=== PATIENT | female | born 1985 | race Caucasian/White ===

== ENCOUNTER 2021-08-24 10:16 | Inpatient (IN) | payer OTHER, MEDICAID, SELFPAY ==
[2021-08-24] VITALS (22 sets, daily range): BP systolic 109–138; BP diastolic 62–85; PULSE 85–115; RESP 14–30; TEMP 36.6–37.3; O2SAT 94–100; BMI 30.3
--- NOTE | 2021-08-24 10:41 | ED_ITS ---
HPI - Psych General Chief Complaint: Psychiatric Symptoms Time Seen by Provider: 08/24/21 10:39 Source: patient Mode of arrival: Ambulatory (w/ EMS volunteer aide from [facility]) Limitations: no limitations History of Present Illness HPI Narrative: This is a 36-year-old female who comes emergency department with complaint of alcohol withdrawal, suicidal ideation with intentional overdose last night of approximately 15 tablets of 300 mg gabapentin. Patient does not really admit to intentional suicidal overdose but also states multiple times that she ?just wants to ?. When asked specifically why she took gabapentin she states she is not sure why. She states she is feeling extremely anxious. She gets quite upset, tearful and yells but then apologizes. She states she just does not like the feeling of the alcohol withdrawal. She does states she has a history of bipolar she can not really tell me if she feels like she is manic right now or more depressed. She does have medications that she takes she is unclear about whether she has been taking them regularly. She moved to the area in May from [place] and is not fully established with mental health care from what she tells me. She denies other medical issues. She has had seizures with alcohol withdrawal in the past she denies hallucinations at this time but feels shaky, nauseated she has had some diarrhea. No chest pain or shortness of breath. She denies vomiting. She denies any urinary symptoms. Patient denies any major prior surgeries. No known drug allergies. She does use tobacco, she states she drinks a 5th to 1/2 gallon of daily, she uses THC but denies other illicit. I was also contacted prior to her arrival by Brianna PIÑA. He states patient has had suicidal thoughts of overdosing and then mentions later that patient took approximately 15 tabs of gabapentin at 300 mg approximately at 10:00 p.m. on 08/23/2021 per patient report and her last alcoholic drink was 12 hours prior at 8:00 p.m. on 08/23/2021. Patient drinks a half to a 5th of whiskey daily. He notes that patient's father while in the hospital going through alcohol withdrawal from an [place]. Patient states this was 2 years ago. He is sending the patient for alcohol abuse as well as concurrent psychiatric needs. Related Data Home Medications Medication Instructions Recorded Confirmed atomoxetine 40 mg capsule 40 mg PO DAILY 08/24/21 08/24/21 cariprazine 3 mg capsule (Vraylar) 3 mg PO DAILY 08/24/21 08/24/21 gabapentin 300 mg capsule 300 mg PO DAILY 08/24/21 08/24/21 lamotrigine 100 mg tablet 100 mg PO BEDTIME 08/24/21 08/24/21 Allergies Allergy/AdvReac Type Severity Reaction Status Date / Time No Known Drug Allergies Allergy Verified 08/24/21 10:47 Review of Systems Review of Systems ROS Unobtainable: All systems reviewed & are unremarkable except as noted in HPI and below Patient History Social History Smoking Status: Current every day smoker Exam Narrative Exam Narrative: GEN: well nourished female, alert and oriented x 3, patient appears to be in moderate distress. HEENT: Atraumatic, pupils are equal round reactive to light, extraocular movements are intact, no nystagmus, nares are clear. HEART: Regular rate and rhythm without murmur, clicks, rubs. LUNGS:Lungs clear to auscultation, no wheezes, rales, crackles, chest moves symmetrically ABD:bowel sounds normal, soft, non-tender, no guarding, rebound, rigidity, no masses noted, no hepatosplenomegaly :No CVA tenderness MSCL: Non-tender, no muscle atrophy, muscles strength 5/5 upper and lower extremities, full range of motion, normal gait NEURO:CN 2-12 intact, sensation normal, mild generalized tremor. PSYCH: This is a patient who admits to suicidal ideation, she is seeking help, she denies thoughts of harming others or intent, patient feels that she is withdrawing but also has a history of bipolar. She currently denies any hallucinations. She admits to significant anxiety currently. Patient is intermittently tearful and agitated but then is apologetic. Initial Vital Signs Initial Vital Signs: Vital Signs Temperature 98 F 08/24/21 10:20 Pulse Rate 85 08/24/21 10:20 Respiratory Rate 18 08/24/21 10:20 Blood Pressure 138/85 08/24/21 10:20 Pulse Oximetry 100 08/24/21 10:20 Scores GCS Shira coma scale eye opening: Spontaneous [place] coma scale verbal response: Orientated [place] coma scale motor response: Obey commands [place] coma scale total score: 15 Course Orders Ordered: ED Orders 08/24/21 10:40 Urine Culture Stat Urine Drug Screen, Rapid Stat Urine Microscopic Stat 08/24/21 10:41 Consult to [facility] - International Student Counselor Stat 08/24/21 11:05 Acetaminophen Stat Complete Blood Count AUTO DIFF Stat Comprehensive Metabolic Panel Stat Ethanol (ETOH) Stat Hepatic (Liver) Panel Stat Lactate (Lactic Acid) Stat Salicylate Stat 08/24/21 12:37 COVID19 -Nasal swab/Pre-Proc Stat 08/24/21 15:36 ETOH [Ethanol (ETOH)] Stat Sodium Chloride (Normal Saline 0.9%) 1,000 mls @ 150 mls/hr IV CONT KYLE Last Admin: 08/24/21 11:01 Dose: 150 mls/hr Documented by: BRII Discontinued Medications Lorazepam (Lorazepam 2 Mg/Ml Inj) 1 mg IV NOW ONE Stop: 08/24/21 12:35 Last Admin: 08/24/21 12:43 Dose: 1 mg Documented by: BRII Nicotine (Nicotine 21 Mg Patch) 21 mg TOP NOW ONE Stop: 08/24/21 11:09 Last Admin: 08/24/21 11:41 Dose: 21 mg Documented by: KIRA Olanzapine (Olanzapine Odt 10 Mg Tab) 10 mg PO NOW ONE Stop: 08/24/21 10:55 Last Admin: 08/24/21 11:00 Dose: 10 mg Documented by: BRII Phenobarbital (Phenobarbital 65 Mg/Ml Vial) 260 mg IV NOW ONE Stop: 08/24/21 10:44 Last Admin: 08/24/21 10:59 Dose: 260 mg Documented by: BRII Phenobarbital (Phenobarbital 65 Mg/Ml Vial) 130 mg IV NOW ONE Stop: 08/24/21 15:28 Last Admin: 08/24/21 15:32 Dose: 130 mg Documented by: BRII Reevaluation(s) Reevaluation #1: Recheck patient had some improvement with initial dose of phenobarbital. Then began to feel more anxious. Her see what began to climb was given additional dose of Ativan. Reevaluation #2: On recheck patient's heart rate has began to climb, she is not hypertensive but is anxious. Her lactate has trended upwards. Concerned that she may be going through worsening alcohol withdrawal that is not responding well to medications and patient is agreeable to being inpatient medical treatment for alcohol withdrawal. Consultations Consultation #1: Poison control contacted. Would have seen effects by now. Typically very large overdoses are well tolerated. Main symptoms is drowsiness. Lactic acidosis is not expected. They have signed off from case at this time. Consultation #2: Dr. Laureano, hospitalist kindly accepts for admission for alcohol withdrawal, reported gabapentin overdose with rising lactic acidosis and tachycardia. Suspect this is secondary to her withdrawal she drinks a significant amount of alcohol. She has had improvement intermittently with the phenobarbital and 2nd dose as well as a single dose of Ativan. I did discuss that she had 1 dose of Zyprexa oral which was helpful. I had reviewed with pharmacy who states they Percocet will typically be down regulated and will be less by availability if have his repeated doses of phenobarbital. Vital Signs Vital signs: Vital Signs - 8 hr 08/24/21 10:20 08/24/21 11:08 08/24/21 11:30 Temperature 98 F Pulse Rate 85 93 H 90 Respiratory Rate 18 19 20 Blood Pressure 138/85 138/85 Pulse Oximetry 100 94 08/24/21 11:51 08/24/21 12:00 08/24/21 12:30 Temperature Pulse Rate 97 H 101 H 107 H Respiratory Rate 28 H 27 H 23 Blood Pressure 124/77 124/80 Pulse Oximetry 100 99 100 08/24/21 13:00 08/24/21 13:22 08/24/21 13:30 Temperature Pulse Rate 108 H 103 H 109 H Respiratory Rate 18 16 16 Blood Pressure 135/78 123/76 Pulse Oximetry 96 95 95 08/24/21 14:01 08/24/21 14:08 08/24/21 14:30 Temperature Pulse Rate 115 H 110 H 105 H Respiratory Rate 18 18 27 H Blood Pressure 133/85 124/75 Pulse Oximetry 96 99 98 08/24/21 15:00 08/24/21 15:41 Temperature 98.5 F Pulse Rate 106 H 105 H Respiratory Rate 28 H 16 Blood Pressure 135/75 122/74 Pulse Oximetry 97 99 MDM - Psych Lab Data Result diagrams: 08/24/21 11:05 08/24/21 11:05 Labs: Lab Results 08/24/21 08/24/21 08/24/21 Range/Units 10:40 10:40 11:05 WBC 6.6 (4.5-11.0) X10^3/uL RBC 5.06 (4.0-5.2) X10^6/uL Hgb 14.9 (12.0-16.0) g/dL Hct 43.0 (36-46) % MCV 84.9 (80-100) fL MCH 29.4 (26-34) PG MCHC 34.7 (30-36) % RDW 14.1 (11.6-14.8) % Plt Count 332 (150-400) X10^3/uL Neut % (Auto) 44.1 L (50-75) % Lymph % (Auto) 42.7 H (25-40) % Greene % (Auto) 11.4 (3-14) % Eos % (Auto) 0.5 L (2-4) % Baso % (Auto) 1.3 (0-2) % Neut # (Auto) 2900 (6710-5986) /uL Lymph # (Auto) 2800 (1394-6689) /uL Greene # (Auto) 800 (0-900) /uL Eos # (Auto) 0 (0-450) /uL Baso # (Auto) 100 (0-100) /uL Sodium (137-145) mmol/L Potassium (3.4-5.1) mmol/L Chloride (98-107) mmol/L Carbon Dioxide (22-32) mmol/L BUN (7-17) mg/dL Creatinine (0.52-1.04) mg/dL Estimated GFR (>60) mL/min BUN/Creatinine Ratio (6-22) Glucose (70-100) mg/dL Lactate (0.7-2.1) mmol/L Calcium (8.4-10.2) mg/dL Total Bilirubin (0.2-1.3) mg/dL Conjugated Bilirubin (0.0-0.3) md/dL Unconjugated Bilirubin (0.0-1.1) mg/dL AST (14-36) IU/L ALT (<35) IU/L Alkaline Phosphatase (38-126) U/L Total Protein (6.3-8.2) g/dL Albumin (3.5-5.0) g/dL Globulin (1.7-4.1) g/dL Albumin/Globulin Ratio (1.0-2.8) Urine RBC 1-5/hpf (0-5/HPF) Urine WBC 1-5/hpf (0-5/HPF) Ur Squamous Epith Cells 1-5 /hpf (0-5/HPF) Amorphous Sediment 1+ Urine Bacteria Moderate (10-30) H (None) Ur Culture Indicated? Specimen cultured Salicylates (<20) mg/dL U Opiates 300ng/mL cut Negative (Negative) Ur Oxycodone Screen Negative (Negative) Urine Methadone Screen Negative (Negative) Acetaminophen (10-30) ug/mL Ur Barbiturates Screen Negative (Negative) U Tricyclic Antidepress Negative (Negative) Ur Phencyclidine Scrn Negative (Negative) Ur Amphetamines Screen Negative (Negative) U Methamphetamines Scrn Negative (Negative) Ur MDMA Scrn (Ecstasy) Negative (Negative) U Benzodiazepines Scrn Negative (Negative) Urine Cocaine Screen Negative (Negative) U Marijuana (THC) Screen Negative (Negative) Ethyl Alcohol ( - 10) mg/dL SARS-CoV-2 (PCR) (Negative) 08/24/21 08/24/21 08/24/21 Range/Units 11:05 11:05 12:37 WBC (4.5-11.0) X10^3/uL RBC (4.0-5.2) X10^6/uL Hgb (12.0-16.0) g/dL Hct (36-46) % MCV (80-100) fL MCH (26-34) PG MCHC (30-36) % RDW (11.6-14.8) % Plt Count (150-400) X10^3/uL Neut % (Auto) (50-75) % Lymph % (Auto) (25-40) % Greene % (Auto) (3-14) % Eos % (Auto) (2-4) % Baso % (Auto) (0-2) % Neut # (Auto) (5827-5564) /uL Lymph # (Auto) (6170-2509) /uL Greene # (Auto) (0-900) /uL Eos # (Auto) (0-450) /uL Baso # (Auto) (0-100) /uL Sodium 140 (137-145) mmol/L Potassium 3.7 (3.4-5.1) mmol/L Chloride 101 (98-107) mmol/L Carbon Dioxide 30 (22-32) mmol/L BUN 8 (7-17) mg/dL Creatinine 0.58 (0.52-1.04) mg/dL Estimated GFR > 60.0 (>60) mL/min BUN/Creatinine Ratio 13.8 (6-22) Glucose 99 (70-100) mg/dL Lactate 2.3 H (0.7-2.1) mmol/L Calcium 8.8 (8.4-10.2) mg/dL Total Bilirubin 0.5 (0.2-1.3) mg/dL Conjugated Bilirubin 0.0 (0.0-0.3) md/dL Unconjugated Bilirubin 0.5 (0.0-1.1) mg/dL AST 45 H (14-36) IU/L ALT 49 H (<35) IU/L Alkaline Phosphatase 93 (38-126) U/L Total Protein 8.1 (6.3-8.2) g/dL Albumin 4.7 (3.5-5.0) g/dL Globulin 3.4 (1.7-4.1) g/dL Albumin/Globulin Ratio 1.4 (1.0-2.8) Urine RBC (0-5/HPF) Urine WBC (0-5/HPF) Ur Squamous Epith Cells (0-5/HPF) Amorphous Sediment Urine Bacteria (None) Ur Culture Indicated? Salicylates < 1.0 (<20) mg/dL U Opiates 300ng/mL cut (Negative) Ur Oxycodone Screen (Negative) Urine Methadone Screen (Negative) Acetaminophen < 10 L (10-30) ug/mL Ur Barbiturates Screen (Negative) U Tricyclic Antidepress (Negative) Ur Phencyclidine Scrn (Negative) Ur Amphetamines Screen (Negative) U Methamphetamines Scrn (Negative) Ur MDMA Scrn (Ecstasy) (Negative) U Benzodiazepines Scrn (Negative) Urine Cocaine Screen (Negative) U Marijuana (THC) Screen (Negative) Ethyl Alcohol 184 H ( - 10) mg/dL SARS-CoV-2 (PCR) Negative (Negative) 08/24/21 08/24/21 Range/Units 13:15 15:36 WBC (4.5-11.0) X10^3/uL RBC (4.0-5.2) X10^6/uL Hgb (12.0-16.0) g/dL Hct (36-46) % MCV (80-100) fL MCH (26-34) PG MCHC (30-36) % RDW (11.6-14.8) % Plt Count (150-400) X10^3/uL Neut % (Auto) (50-75) % Lymph % (Auto) (25-40) % Greene % (Auto) (3-14) % Eos % (Auto) (2-4) % Baso % (Auto) (0-2) % Neut # (Auto) (5439-4079) /uL Lymph # (Auto) (2565-4313) /uL Greene # (Auto) (0-900) /uL Eos # (Auto) (0-450) /uL Baso # (Auto) (0-100) /uL Sodium (137-145) mmol/L Potassium (3.4-5.1) mmol/L Chloride (98-107) mmol/L Carbon Dioxide (22-32) mmol/L BUN (7-17) mg/dL Creatinine (0.52-1.04) mg/dL Estimated GFR (>60) mL/min BUN/Creatinine Ratio (6-22) Glucose (70-100) mg/dL Lactate 3.3 H (0.7-2.1) mmol/L Calcium (8.4-10.2) mg/dL Total Bilirubin (0.2-1.3) mg/dL Conjugated Bilirubin (0.0-0.3) md/dL Unconjugated Bilirubin (0.0-1.1) mg/dL AST (14-36) IU/L ALT (<35) IU/L Alkaline Phosphatase (38-126) U/L Total Protein (6.3-8.2) g/dL Albumin (3.5-5.0) g/dL Globulin (1.7-4.1) g/dL Albumin/Globulin Ratio (1.0-2.8) Urine RBC (0-5/HPF) Urine WBC (0-5/HPF) Ur Squamous Epith Cells (0-5/HPF) Amorphous Sediment Urine Bacteria (None) Ur Culture Indicated? Salicylates (<20) mg/dL U Opiates 300ng/mL cut (Negative) Ur Oxycodone Screen (Negative) Urine Methadone Screen (Negative) Acetaminophen (10-30) ug/mL Ur Barbiturates Screen (Negative) U Tricyclic Antidepress (Negative) Ur Phencyclidine Scrn (Negative) Ur Amphetamines Screen (Negative) U Methamphetamines Scrn (Negative) Ur MDMA Scrn (Ecstasy) (Negative) U Benzodiazepines Scrn (Negative) Urine Cocaine Screen (Negative) U Marijuana (THC) Screen (Negative) Ethyl Alcohol < 10 ( - 10) mg/dL SARS-CoV-2 (PCR) (Negative) Point of Care Testing Test Results Negative Urine Dip Bedside Urine Glucose Negative Bedside Urine Bilirubin - Negative Bedside Urine Ketone - Negative Urine Specific Percival 1.010 Bedside Urine Occult Blood ++ Bedside Urine pH 7.0 Bedside Urine Protein - Negative Bedside Urine Urobilinogen 0.2 Bedside Urine Nitrite - Negative Bedside Urine Leukocytes - Negative Esterase MDM Narrative Medical decision making narrative: Vraylar 3mg daily-bipolar medication Atomexetine 40mg q am-probably not taking AHDH/narcolepsy indication. lamotrigine 100mg Q HS-maybe taking This is a 36-year-old female who comes to the emergency department with complaint of alcohol withdrawal, intentional gabapentin overdose last night and suicidal ideation. Patient states that she is seeking help she feels that she is having significant withdrawal symptoms. She does drink quite a bit of alcohol regularly she denies other illicit other than THC normally. Patient was sent [facility] from the [facility] by their [facility] team for evaluation. Labs show an elevated lactate which is trending upwards. Patient has had alcohol of 180s and is now negative with heart rate that is starting to rise, patient has not been hypertensive but has had rising CIWA and has had phenobarb, Zyprexa, Ativan followed by additional phenobarbital and is admitted for alcohol withdrawal. Social work has seen her and patient is agreeable to staying and has been voluntary in terms of her psychiatric care. She seems much more appropriate on recheck and expresses that she is still continuing to seek assistance for help. Spoke with our hospitalist who kindly accepts. Discharge Plan Departure Patient Disposition: Admitted As Inpatient Clinical Impression: Alcohol abuse with withdrawal, History of bipolar disorder Admit Date/Time: 08/24/21 16:09 Admit Provider: Elier Laureano
[2021-08-24] MEDS: PHENobarbital 65 MG/ML VIAL 260 MG IV (10:59)
[2021-08-24] MEDS: OLANZapine ODT 10 MG TAB PO (11:00)
[2021-08-24] MEDS: SODIUM CHLORIDE 0.9% 1,000 ML 150 ML IV ×2 (11:01→18:45)
[2021-08-24 11:16] LABS: Add Manual Diff / Slide Review NO; Basophils Absolute Auto 100 /uL (0-100); Basophils Percent Auto 1.3 % (0-2); Eosinophils Absolute Auto 0 /uL (0-450); Eosinophils Percent Auto 0.5 % (2-4); Hemoglobin 14.9 g/dL (12.0-16.0); Lymphocytes Absolute Auto 2800 /uL (1100-4500); Lymphocytes Percent Auto 42.7 % (25-40); Mean Corpuscular HGB Conc 34.7 % (30-36); Mean Corpuscular Hemoglobin 29.4 PG (26-34); Mean Corpuscular Volume 84.9 fL (80-100); Monocytes Absolute Auto 800 /uL (0-900); Monocytes Percent Auto 11.4 % (3-14); Neutrophils Absolute Auto 2900 /uL (1500-7000); Neutrophils Percent Auto 44.1 % (50-75); Platelet Count 332 X10^3/uL (150-400); Red Blood Cell Count 5.06 X10^6/uL (4.0-5.2); Red Cell Distribution Width 14.1 % (11.6-14.8); White Blood Cell Count 6.6 X10^3/uL (4.5-11.0)
[2021-08-24 11:17] LABS: Amorphous Sediment Urine 1+; Bacteria Urine Moderate (10-30); RBC Urine 1-5/HPF (0-5/HPF); Squamous Epithelial Cell Urine 1-5 /HPF (0-5/HPF); WBC Urine 1-5/HPF (0-5/HPF)
[2021-08-24 11:17] LABS: Lactate (Lactic Acid) 2.3 mmol/L (0.7-2.1)
[2021-08-24 11:18] LABS: Acetaminophen < 10 ug/mL (10-30); Alanine Aminotransferase 49 IU/L (<35); Albumin 4.7 g/dL (3.5-5.0); Albumin Globulin Ratio 1.4 (1.0-2.8); Alkaline Phosphatase 93 U/L (38-126); Aspartate Aminotransferase 45 IU/L (14-36); BUN Creatinine Ratio 13.8 (6-22); Bilirubin Total 0.5 mg/dL (0.2-1.3); Bilirubin Unconjugated 0.5 mg/dL (0.0-1.1); Blood Urea Nitrogen 8 mg/dL (7-17); Calcium 8.8 mg/dL (8.4-10.2); Carbon Dioxide 30 mmol/L (22-32); Chloride 101 mmol/L (98-107); Estimated Glomerular Filt Rate > 60.0 mL/min (>60); Ethanol (ETOH) 184 mg/dL; Globulin 3.4 g/dL (1.7-4.1); Glucose 99 mg/dL (70-100); HEMOLYSIS < 15 (0-50); Potassium 3.7 mmol/L (3.4-5.1); Salicylate < 1.0 mg/dL (<20); Sodium 140 mmol/L (137-145); Total Protein 8.1 g/dL (6.3-8.2)
[2021-08-24 11:18] LABS: Culture Indicated Urine Specimen Cultured
[2021-08-24 11:22] LABS: UR Morphine/Opiate cutoff 300 Negative (Negative); Ur Creatinine Normal (Normal); Ur Specific Gravity Normal (Normal); Urine Amphetamines Negative (Negative); Urine Barbiturates Negative (Negative); Urine Benzodiazepines Negative (Negative); Urine Cocaine Negative (Negative); Urine MDMA Negative (Negative); Urine Methadone Negative (Negative); Urine Methamphetamines Negative (Negative); Urine Oxycodone Negative (Negative); Urine Phencyclidine Negative (Negative); Urine Tetrahydrocannabinol Negative (Negative); Urine Tricyclic Antidepressant Negative (Negative); Urine pH Normal (Normal)
[2021-08-24] MEDS: NICOTINE 21 MG PATCH TOP (11:41)
--- NOTE | 2021-08-24 11:45 | PC.NURSE ---
called poison control about OD of 15 gabapentin. pt has passed time of clearance for gabapentin. with her level of kidney function pt should be ok. only symptoms to watch for are any possible drowsiness but is medically cleared from poison control standpoint for gabapentin affects [phone]
[2021-08-24] MEDS: LORazepam 2 MG/ML INJ 1 MG IV ×2 (12:43→17:05)
[2021-08-24 13:06] LABS: Reflexed Lactate in 2 Hours Y
--- NOTE | 2021-08-24 13:15 | PC.NURSE ---
Received call/report from [facility] personnel Padmini re: pt interaction this morning at 0600 on [facility]. EMT states pt called EMS for assistance. States pt reported taking 15 tabs of 300mg gabapentin around 8pm last night. Pt reports that she drinks a 5th to a 1/2 gallon of liquor daily. Last drink was 12hrs ago with a timestamp of roughly 10pm last night. Pt advised EMS that she is depressed, bipolar, alcoholic and suffers seizures during ETOH withdrawal. Pt reports feeling out of control, upset and struggling. EMT # [phone]. Provider aware and primary RN aware.
[2021-08-24 13:24] LABS: COVID19 -Nasal RAPID Negative (Negative)
[2021-08-24 13:38] LABS: Lactate 2HR (Lactic Acid Rflx) 3.3 mmol/L (0.7-2.1)
[2021-08-24] MEDS: PHENobarbital 65 MG/ML VIAL 130 MG IV (15:32)
[2021-08-24 15:57] LABS: Ethanol (ETOH) < 10 mg/dL
[2021-08-24 16:32] LABS: Creatine Kinase 293 U/L (30-135)
--- NOTE | 2021-08-24 17:28 | PC.NURSE ---
report given to kavin killian at [phone]
[2021-08-24 17:49] LABS: Lactate (Lactic Acid) 2.1 mmol/L (0.7-2.1)
[2021-08-24] MEDS: LORazepam 2 MG/ML INJ IV ×2 (18:10→18:31)
--- NOTE | 2021-08-24 18:13 | PM.HP.1 ---
History of Present Illness History of Present Illness Date Patient Seen: 08/24/21 Time Patient Seen: 08:00 Chief complaint: SI Narrative: Ms. Desir is a 36W with PMH bipolar disorder with previous suicide attempt, EtOH abuse with previous withdrawal seizures who presents after intentional gabapentin ingestion and also seeking help for EtOH withdrawal. She states that she has a long history of bipolar disorder, she has had suicide attempt in the past, but this was when she was very young. She recently moved to [place] and has little social support here. She had been sober for two years but started drinking significantly six months ago. She is now drinking more and more whiskey and is drinking as much as half a gallon of whiskey daily. Her last drink was 2am this morning on 08/24. She is taking naltrexone. She has been thinking that her psychiatry meds have not been controlling her symptoms well. She has been having worse anxiety. She has been feeling suicidal off and on very frequently, she has been thinking of cutting herself. She says that yesterday she took approximately 15 pills of 300mg gabapentin because she wanted to control her anxiety, and she was not trying to commit suicide at that time. She is unsure right now when I am talking to her if she is feeling suicidal. She felt quite shaky when she initially came in to the hospital, and still feels withdrawal symptoms but they are improved since being started on medications. She wants help with both her mental health and her alcohol use. In the ED workup was done, vitals signs initially normal. She then developed tachycardia as her withdrawal from alcohol worsened. Labs notable for wBC 6.6, hgb 14.9, plts 332. Creatinine 0.58. UA with positive bacteria. Urine tox screen negative. Initial EtOH 184. Tylenol negative. Lactate 2.3->3.3->2.1. She was given phenobarb and ativan. She was admitted for further treatment. Past medical history: Bipolar disorder Family history: Father with EtOH abuse, [place] Social history: a fifth to half gallon of whiskey daily, rarely uses THC, denies other substance use Patient History Family & Social History Safety & Behavioral: Feels Safe in Current No Environment Been Physically Hurt or No Threatened By a Person Suicidal Ideation Description Frequent Suicide Plan Description Clear,Organized,Specific,Feasible,High Lethality Tobacco & Substance use: Smoking Status Current every day smoker alcohol intake frequency 3 or more drinks per day Substance Use Type marijuana Meds Home Medications and Allergies Home Medications Medication Instructions Recorded Confirmed Type atomoxetine 40 mg capsule 40 mg PO DAILY 08/24/21 08/24/21 History cariprazine 3 mg capsule (Vraylar) 3 mg PO DAILY 08/24/21 08/24/21 History gabapentin 300 mg capsule 300 mg PO DAILY 08/24/21 08/24/21 History lamotrigine 100 mg tablet 100 mg PO BEDTIME 08/24/21 08/24/21 History Allergies Allergy/AdvReac Type Severity Reaction Status Date / Time No Known Drug Allergies Allergy Verified 08/24/21 10:47 Review of Systems Review of Systems Narrative: 14 systems reviewed and negative aside from what is noted in HPI Exam Vital Signs (past 8 hours): - 08/24/21 10:20 08/24/21 11:08 08/24/21 11:30 Temperature 98 F Pulse Rate 85 93 H 90 Respiratory Rate 18 19 20 Blood Pressure 138/85 138/85 Pulse Oximetry 100 94 08/24/21 11:51 08/24/21 12:00 08/24/21 12:30 Temperature Pulse Rate 97 H 101 H 107 H Respiratory Rate 28 H 27 H 23 Blood Pressure 124/77 124/80 Pulse Oximetry 100 99 100 08/24/21 13:00 08/24/21 13:22 08/24/21 13:30 Temperature Pulse Rate 108 H 103 H 109 H Respiratory Rate 18 16 16 Blood Pressure 135/78 123/76 Pulse Oximetry 96 95 95 08/24/21 14:01 08/24/21 14:08 08/24/21 14:30 Temperature Pulse Rate 115 H 110 H 105 H Respiratory Rate 18 18 27 H Blood Pressure 133/85 124/75 Pulse Oximetry 96 99 98 08/24/21 15:00 08/24/21 15:30 08/24/21 15:41 Temperature 98.5 F Pulse Rate 106 H 108 H 104 H Respiratory Rate 28 H 17 18 Blood Pressure 135/75 127/76 122/74 Pulse Oximetry 97 98 98 08/24/21 16:00 08/24/21 16:30 08/24/21 17:51 Temperature 99.2 F Pulse Rate 100 H 97 H 110 H Respiratory Rate 18 20 20 Blood Pressure 110/75 122/71 129/78 Pulse Oximetry 97 97 100 Oxygen Delivery Method Room Air Narrative Exam Narrative: GEN: no acute distress, mild anxiety HEENT: moist mucous membranes, PERRL NECK: trachea midline, no JVD CV: mildly tachycardic, no murmurs PULM: clear bilaterally, no wheezes, rhonchi, rales ABD: soft, mildly distended, nontender, no organomegaly, normal bowel sounds EXT: warm and well perfused with no edema NEURO: awake, alert, very minimal tremors, moving all extremities with no focal deficits PSYCH: pleasant, cooperative, anxious Objective Labs Result Diagrams: 08/24/21 11:05 08/24/21 11:05 Labs: Laboratory Results - last 24 hr 08/24/21 08/24/21 08/24/21 10:40 10:40 10:43 WBC RBC Hgb Hct MCV MCH MCHC RDW Plt Count Neut % (Auto) Lymph % (Auto) Mccracken % (Auto) Eos % (Auto) Baso % (Auto) Neut # (Auto) Lymph # (Auto) Mccracken # (Auto) Eos # (Auto) Baso # (Auto) Sodium Potassium Chloride Carbon Dioxide BUN Creatinine Estimated GFR BUN/Creatinine Ratio Glucose Lactate Calcium Total Bilirubin Conjugated Bilirubin Unconjugated Bilirubin AST ALT Alkaline Phosphatase Total Creatine Kinase 293 H Total Protein Albumin Globulin Albumin/Globulin Ratio Urine RBC 1-5/hpf Urine WBC 1-5/hpf Ur Squamous Epith Cells 1-5 /hpf Amorphous Sediment 1+ Urine Bacteria Moderate (10-30) H Ur Culture Indicated? Specimen cultured Salicylates U Opiates 300ng/mL cut Negative Ur Oxycodone Screen Negative Urine Methadone Screen Negative Acetaminophen Ur Barbiturates Screen Negative U Tricyclic Antidepress Negative Ur Phencyclidine Scrn Negative Ur Amphetamines Screen Negative U Methamphetamines Scrn Negative Ur MDMA Scrn (Ecstasy) Negative U Benzodiazepines Scrn Negative Urine Cocaine Screen Negative U Marijuana (THC) Screen Negative Ethyl Alcohol SARS-CoV-2 (PCR) 08/24/21 08/24/21 08/24/21 11:05 11:05 11:05 WBC 6.6 RBC 5.06 Hgb 14.9 Hct 43.0 MCV 84.9 MCH 29.4 MCHC 34.7 RDW 14.1 Plt Count 332 Neut % (Auto) 44.1 L Lymph % (Auto) 42.7 H Mccracken % (Auto) 11.4 Eos % (Auto) 0.5 L Baso % (Auto) 1.3 Neut # (Auto) 2900 Lymph # (Auto) 2800 Mccracken # (Auto) 800 Eos # (Auto) 0 Baso # (Auto) 100 Sodium 140 Potassium 3.7 Chloride 101 Carbon Dioxide 30 BUN 8 Creatinine 0.58 Estimated GFR > 60.0 BUN/Creatinine Ratio 13.8 Glucose 99 Lactate 2.3 H Calcium 8.8 Total Bilirubin 0.5 Conjugated Bilirubin 0.0 Unconjugated Bilirubin 0.5 AST 45 H ALT 49 H Alkaline Phosphatase 93 Total Creatine Kinase Total Protein 8.1 Albumin 4.7 Globulin 3.4 Albumin/Globulin Ratio 1.4 Urine RBC Urine WBC Ur Squamous Epith Cells Amorphous Sediment Urine Bacteria Ur Culture Indicated? Salicylates < 1.0 U Opiates 300ng/mL cut Ur Oxycodone Screen Urine Methadone Screen Acetaminophen < 10 L Ur Barbiturates Screen U Tricyclic Antidepress Ur Phencyclidine Scrn Ur Amphetamines Screen U Methamphetamines Scrn Ur MDMA Scrn (Ecstasy) U Benzodiazepines Scrn Urine Cocaine Screen U Marijuana (THC) Screen Ethyl Alcohol 184 H SARS-CoV-2 (PCR) 08/24/21 08/24/21 08/24/21 12:37 13:15 15:36 WBC RBC Hgb Hct MCV MCH MCHC RDW Plt Count Neut % (Auto) Lymph % (Auto) Mccracken % (Auto) Eos % (Auto) Baso % (Auto) Neut # (Auto) Lymph # (Auto) Mccracken # (Auto) Eos # (Auto) Baso # (Auto) Sodium Potassium Chloride Carbon Dioxide BUN Creatinine Estimated GFR BUN/Creatinine Ratio Glucose Lactate 3.3 H Calcium Total Bilirubin Conjugated Bilirubin Unconjugated Bilirubin AST ALT Alkaline Phosphatase Total Creatine Kinase Total Protein Albumin Globulin Albumin/Globulin Ratio Urine RBC Urine WBC Ur Squamous Epith Cells Amorphous Sediment Urine Bacteria Ur Culture Indicated? Salicylates U Opiates 300ng/mL cut Ur Oxycodone Screen Urine Methadone Screen Acetaminophen Ur Barbiturates Screen U Tricyclic Antidepress Ur Phencyclidine Scrn Ur Amphetamines Screen U Methamphetamines Scrn Ur MDMA Scrn (Ecstasy) U Benzodiazepines Scrn Urine Cocaine Screen U Marijuana (THC) Screen Ethyl Alcohol < 10 SARS-CoV-2 (PCR) Negative 08/24/21 17:33 WBC RBC Hgb Hct MCV MCH MCHC RDW Plt Count Neut % (Auto) Lymph % (Auto) Mccracken % (Auto) Eos % (Auto) Baso % (Auto) Neut # (Auto) Lymph # (Auto) Mccracken # (Auto) Eos # (Auto) Baso # (Auto) Sodium Potassium Chloride Carbon Dioxide BUN Creatinine Estimated GFR BUN/Creatinine Ratio Glucose Lactate 2.1 Calcium Total Bilirubin Conjugated Bilirubin Unconjugated Bilirubin AST ALT Alkaline Phosphatase Total Creatine Kinase Total Protein Albumin Globulin Albumin/Globulin Ratio Urine RBC Urine WBC Ur Squamous Epith Cells Amorphous Sediment Urine Bacteria Ur Culture Indicated? Salicylates U Opiates 300ng/mL cut Ur Oxycodone Screen Urine Methadone Screen Acetaminophen Ur Barbiturates Screen U Tricyclic Antidepress Ur Phencyclidine Scrn Ur Amphetamines Screen U Methamphetamines Scrn Ur MDMA Scrn (Ecstasy) U Benzodiazepines Scrn Urine Cocaine Screen U Marijuana (THC) Screen Ethyl Alcohol SARS-CoV-2 (PCR) Assessment & Plan Assessment & Plan narrative: Ms. Desir is a 36W with PMH of bipolar disorder, EtOH abuse who presents are intentional gabapentin ingestion and alcohol withdrawal. 1. Acute alcohol withdrawal -given phenobarb and ativan in ED with good effect -continue ciwa protocol with ativan -ordered mvi, thiamine, folate -patient is interested in quitting alcohol -she is interested in outpatient resources -naltrexone has helped reduce cravings 2. Intentional gabapentin ingestion -most likely side effect is lethargy -she is likely outside window for any further acute side effects -hold gabapentin 3. Bipolar disorder with depression, anxiety with intermittent suicidal thoughts, ADHD -continue atomoxetine, vraylar, lamotrigine -consult psychiatry -will need to determine if patient will need inpatient psychiatry care once medically stable CODE: Full Proxy: none I have utilized all available resources to reconcile the patients home medications Time Spent With Patient Critical Care time: I spent a total of [] minutes of critical care time on this patient's care today; this time is exclusive of procedural time.
[2021-08-24] MEDS: cefTRIAXone 1,000 MG in SODIUM CHLORIDE 0.9% 100 ML 200 ML IV (18:43)
--- NOTE | 2021-08-24 18:57 | CM.DANOTE ---
Discharge Assessment Note: Patient is 36yo F admitted for acute alcohol withdrawal as well as intentional overdose of prescribed medications (Gabapentin). Patient has history of Bipolar disorder, anxiety, ADHD. Patient contacted 911 to report she had taken the medication and requested assistance with her mental health crisis. Per Brianna (DCR on duty in [facility]) [facility] contacted him to assist patient. Brianna talked with patient on phone, the EMT, and the deputy. Brianna reported it is his opinion that patient is genuinely seeking help and not med seeking. Brianna reported patient did not report to him that the gabapentin overdose was a suicide attempt. Patient reported to DCR that she drinks a fifth to half gallon of hard whiskey daily, had run out of money to get more alcohol, took her gabapentin to deal with increasing anxiety in absence of ETOH. Patient has had 2 years sobriety after a 28 day i/p stay but relapsed 6 months ago. DCR reported patient did not know trigger for relapse when asked. DCR reported he did not have information about if patient has more stored medications accessible to her and that [facility] told DCR pt had threatened to take more medications. DCR is not aware of trauma history for patient other than patient's father is , while in a [facility] treatment facility after a relapse post 10 years sober. Patient has limited supports in local area and is new to [facility] in last six months, from [place]. COMPUTER OPERATIONS TECHNICIAN met briefly with patient at bedside. Patient had not yet sobered or been medically cleared. Patient did report the medication was taken to help with her anxiety and denied she had intentionally made a suicide attempt. Patient reported her withdrawal symptoms were too extreme at this time to continue discussion with COMPUTER OPERATIONS TECHNICIAN. Attending physician notified of patient's increasing anxiety. Patient resides on [facility] and will require assistance with ferry transportation if patient is being discharged home. Patient did report she was interested in treatment for both her mental health and [facility] I think I need it. DCR is requesting contact at time of discharge so that patient can be reconnected with [facility] [address] if she is going home instead of to a treatment facility. Sche can be reached at [phone]. INS: Medicaid PLAN: Patient would benefit from dual diagnosis admission to [facility] or [facility] in [place]. [facility] in [place] is another option for patient. Should patient discharge home, reconnecting to [facility] via [facility] would be suggested. COMPUTER OPERATIONS TECHNICIAN will continue to follow throughout clinical course of admission. Nico Linn NEWTON Discharge Planning/Care Management CM Discharge Assessment Start: 08/24/21 18:53 Freq: Status: Active Protocol: Document 08/24/21 18:53 FJ (Rec: 08/24/21 18:57 FJ [id number]) Discharge Planning Assessment Assigned Electrical Development Engineer Nico Linn NEWTON DPOA/Assigned Designee Name none Advance Directives? No History Provided By Patient,Medical Record Has Patient been admitted in last 30 No days? Prior Living Arrangements House Comment [employer] Household Members none Type of transporation used prior to Drives own vehicle admit Independent with ADL's Yes Is patient alert and oriented? No: pt alert to self, place, circumstance Caregiver for Another No Patient/Family Preference Drug/Alcohol Rehab Barriers to Discharge No Discharge Plan Inpatient Rehab Unit Transportation Arrangement patient will need assist with transport home as she was brought to ED via EMS volunteer transport from [place] . Whiteboard Updated in Patient Room with No name and ext. # of Electrical Development Engineer Comment Assessment completed in ED setting Review Status In Process Next Review Type Continued Stay Review ED Psychiatric Symptoms Assessment Start: 08/24/21 10:46 Freq: Status: Discharge Protocol: Document 08/24/21 10:48 KB (Rec: 08/24/21 10:52 KB [email or web address]) Psychiatric Symptoms Assessment Symptoms/Complaint Suicidal Ideation Duration Getting Worse History Of Same Yes Context Recent Alcohol Abuse, Significant Life Stressor Improves With Nothing Worsens With Alcohol Associated Psychiatric Symptoms Depression,Suicidal Ideation Associated Symptoms Headache If Self Harm Admits Thoughts of Self Harm, Has Acted on Plan,Has Plans, Intentional Overdose Details of Plan 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 pt also drinks at least 1/5th per day. Level of Consciousness Alert,Awake Patient Behavior/Mood Anxious,Crying/Tearful, Impulsive,Labile,Restless Ability to Follow Directions Fair Patient Cognition Impaired No Affect Description Anxious,Labile,Tearful Patient Appearance Well Groomed Hallucination Type None Major Depressive Episode Yes Feelings of Hopelessness Yes Suicidal Ideation Frequent Suicide Plan Clear,Organized,Specific,Vague ,Feasible Homicidal Ideation None Nausea/Vomiting None Document 08/24/21 12:00 KB (Rec: 08/24/21 13:03 KB [id number]) Psychiatric Symptoms Assessment Symptoms/Complaint Suicidal Ideation Duration Getting Worse Context Recent Alcohol Abuse, Significant Life Stressor Improves With Nothing Worsens With Alcohol Level of Consciousness Alert,Awake Patient Orientation Name,Age,Month,Place,Situation Patient Behavior/Mood Anxious,Cooperative Ability to Follow Directions Fair Patient Cognition Impaired No Affect Description Anxious,Labile Major Depressive Episode Yes Feelings of Hopelessness Yes Suicidal Ideation Vague Suicide Plan Clear,Organized,Specific, Feasible Homicidal Ideation None Nausea/Vomiting None Document 08/24/21 14:00 KB (Rec: 08/24/21 14:40 KB [email or web address]) Psychiatric Symptoms Assessment Symptoms/Complaint Suicidal Ideation History Of Same Yes Context Recent Alcohol Abuse, Significant Life Stressor Associated Psychiatric Symptoms Depression,Suicidal Ideation If Self Harm Admits Thoughts of Self Harm, Has Acted on Plan,Has Plans, Intentional Overdose Level of Consciousness Awake,Restless Patient Behavior/Mood Anxious,Cooperative Ability to Follow Directions Fair Patient Cognition Impaired No Affect Description Anxious Major Depressive Episode Yes Feelings of Hopelessness Yes Suicidal Ideation Frequent Suicide Plan Clear,Organized,Specific, Feasible Homicidal Ideation None Nausea/Vomiting None Document 08/24/21 16:00 KB (Rec: 08/24/21 16:03 KB [email or web address]) Psychiatric Symptoms Assessment Symptoms/Complaint Suicidal Ideation Context Recent Alcohol Abuse, Significant Life Stressor Associated Psychiatric Symptoms Depression,Suicidal Ideation If Self Harm Admits Thoughts of Self Harm, Has Acted on Plan,Has Plans, Intentional Overdose Level of Consciousness Awake Patient Orientation Name,Age,Month,Year,Place, Situation Patient Behavior/Mood Anxious,Distractible,Labile Ability to Follow Directions Fair Patient Cognition Impaired No Affect Description Anxious,Labile Hallucination Type None Major Depressive Episode No Feelings of Hopelessness No Suicide Plan Clear,Organized,Specific, Feasible,High Lethality Homicidal Ideation None Nausea/Vomiting None
[2021-08-24 19:40] LABS: Reflexed Lactate in 2 Hours Y
--- NOTE | 2021-08-24 19:40 | CM.DPC ---
Discharge plan cont: Prior to ED admission, CHANGE CONTROL ANALYST contacted [facility] who reported no beds available today. [facility] in [place] who reported no bed avail for which they could screen patient. [facility] in [place] who would be willing to screen patient for their 28day inpatient rehab. Contact is Chuy [phone]. [facility] in [place] did not have beds available today, possible 08/15. Nico Linn [facility]
[2021-08-24 20:22] LABS: Lactate 2HR (Lactic Acid Rflx) 1.5 mmol/L (0.7-2.1)
[2021-08-24] MEDS: lamoTRIgine 100 MG TABLET PO (20:48)
[2021-08-25] VITALS (16 sets, daily range): BP systolic 126–156; BP diastolic 77–94; PULSE 79–112; RESP 14–24; TEMP 36.5–37.1; O2SAT 95–100
[2021-08-25] MEDS: SODIUM CHLORIDE 0.9% 1,000 ML 150 ML IV (02:07)
[2021-08-25 05:15] LABS: Add Manual Diff / Slide Review NO; Basophils Absolute Auto 100 /uL (0-100); Eosinophils Absolute Auto 200 /uL (0-450); Eosinophils Percent Auto 2.6 % (2-4); Hematocrit 38.1 % (36-46); Lymphocytes Absolute Auto 2200 /uL (1100-4500); Lymphocytes Percent Auto 30.6 % (25-40); Mean Corpuscular HGB Conc 34.1 % (30-36); Mean Corpuscular Volume 85.2 fL (80-100); Monocytes Absolute Auto 1100 /uL (0-900); Neutrophils Absolute Auto 3600 /uL (1500-7000); Neutrophils Percent Auto 50.8 % (50-75); Platelet Count 244 X10^3/uL (150-400); Red Blood Cell Count 4.48 X10^6/uL (4.0-5.2); Red Cell Distribution Width 13.7 % (11.6-14.8); White Blood Cell Count 7.1 X10^3/uL (4.5-11.0)
[2021-08-25 05:20] LABS: BUN Creatinine Ratio 21.1 (6-22); Blood Urea Nitrogen 12 mg/dL (7-17); Calcium 8.1 mg/dL (8.4-10.2); Carbon Dioxide 27 mmol/L (22-32); Chloride 111 mmol/L (98-107); Estimated Glomerular Filt Rate > 60.0 mL/min (>60); Glucose 96 mg/dL (70-100); HEMOLYSIS < 15 (0-50); Magnesium 1.8 mg/dL (1.6-2.3); Potassium 3.7 mmol/L (3.4-5.1); Sodium 137 mmol/L (137-145)
[2021-08-25] MEDS: ENOXAPARIN 40 MG/0.4 ML SYRINGE SUBCUT (08:25)
[2021-08-25] MEDS: LORazepam 1 MG TABLET PO ×2 (08:25→15:17)
[2021-08-25] MEDS: THIAMINE 100 MG TABLET PO (08:25)
[2021-08-25] MEDS: MULTIVITAMIN 1 TABLET 1 TAB PO (08:25)
[2021-08-25] MEDS: FOLIC ACID 1 MG TABLET PO (08:26)
[2021-08-25] MEDS: ATOMOXETINE 40 MG 40 EACH PO (08:28)
--- NOTE | 2021-08-25 09:33 | CM.DPC ---
Addendum entered by Padmini Green 08/25/21 11:44: DCP Note CELL FEED DEPARTMENT SUPERVISOR enters room to meet with patient, patient presents as tired but A/Ox4. CELL FEED DEPARTMENT SUPERVISOR calls [facility] to speak with intake per their request. Patient speaks with intake and endorses her ETOH use over the last 6 month increasing and increasing depression and SI when detoxing. Patient endorses she is seeking help. Patient endorses that SI is on and off, it is hard to tell because I am at the hospital. Patient endorses that she does not feel safe returning home. Lilly to review patient with provider and f/u with DCP/CELL FEED DEPARTMENT SUPERVISOR desk. KEVIN Good Original Note: DCP Note CELL FEED DEPARTMENT SUPERVISOR calls [facility] for dual dx inpatient bed (Ph. # [phone]). It is reported that they have 1 female bed, CELL FEED DEPARTMENT SUPERVISOR faxes clinicals for review. Per RN, patient is independent with ADLs but presents as anxious. Plan: DCP/CELL FEED DEPARTMENT SUPERVISOR to f/u with [facility] and Hospitalist for POC. KEVIN Good
[2021-08-25] MEDS: LORazepam 2 MG/ML INJ IV (10:28)
--- NOTE | 2021-08-25 10:52 | P.PN_ITS ---
Subjective Subjective Date Patient Seen: 08/25/21 Time Patient Seen: 08:00 Interval history: Today she feels anxious, tremulous, diaphoretic. She is eating breakfast with no nausea. She is not sure if she feels suicidal at the moment, she says it's difficult for her to know when she's in the hospital. She has no suicide plan. Exam Vital Signs (past 8 hours): - 08/25/21 04:29 08/25/21 05:23 08/25/21 07:30 Temperature 97.7 F 98.4 F Pulse Rate 79 79 88 Respiratory Rate 20 20 24 Blood Pressure 132/84 Pulse Oximetry 98 98 97 08/25/21 08:25 08/25/21 08:34 08/25/21 09:08 Temperature Pulse Rate 88 Respiratory Rate 19 Blood Pressure 147/94 H Pulse Oximetry 96 97 08/25/21 09:10 Temperature Pulse Rate Respiratory Rate Blood Pressure 147/94 H Pulse Oximetry Oxygen Delivery Method Room Air Oxygen Flow Rate 0 Narrative Exam Narrative: GEN: no acute distress, mild anxiety HEENT: moist mucous membranes, PERRL NECK: trachea midline, no JVD CV: mildly tachycardic, no murmurs PULM: clear bilaterally, no wheezes, rhonchi, rales ABD: soft, mildly distended, nontender, no organomegaly, normal bowel sounds EXT: warm and well perfused with no edema NEURO: awake, alert, mild tremors, moving all extremities with no focal deficits PSYCH: pleasant, cooperative, anxious Objective Labs Result Diagrams: 08/25/21 04:56 08/25/21 04:56 Labs: Laboratory Results - last 24 hr 08/24/21 08/24/21 08/24/21 10:40 10:40 10:43 WBC RBC Hgb Hct MCV MCH MCHC RDW Plt Count Neut % (Auto) Lymph % (Auto) [place] % (Auto) Eos % (Auto) Baso % (Auto) Neut # (Auto) Lymph # (Auto) [place] # (Auto) Eos # (Auto) Baso # (Auto) Sodium Potassium Chloride Carbon Dioxide BUN Creatinine Estimated GFR BUN/Creatinine Ratio Glucose Lactate Calcium Magnesium Total Bilirubin Conjugated Bilirubin Unconjugated Bilirubin AST ALT Alkaline Phosphatase Total Creatine Kinase 293 H Total Protein Albumin Globulin Albumin/Globulin Ratio Urine RBC 1-5/hpf Urine WBC 1-5/hpf Ur Squamous Epith Cells 1-5 /hpf Amorphous Sediment 1+ Urine Bacteria Moderate (10-30) H Ur Culture Indicated? Specimen cultured Salicylates U Opiates 300ng/mL cut Negative Ur Oxycodone Screen Negative Urine Methadone Screen Negative Acetaminophen Ur Barbiturates Screen Negative U Tricyclic Antidepress Negative Ur Phencyclidine Scrn Negative Ur Amphetamines Screen Negative U Methamphetamines Scrn Negative Ur MDMA Scrn (Ecstasy) Negative U Benzodiazepines Scrn Negative Urine Cocaine Screen Negative U Marijuana (THC) Screen Negative Ethyl Alcohol SARS-CoV-2 (PCR) 08/24/21 08/24/21 08/24/21 11:05 11:05 11:05 WBC 6.6 RBC 5.06 Hgb 14.9 Hct 43.0 MCV 84.9 MCH 29.4 MCHC 34.7 RDW 14.1 Plt Count 332 Neut % (Auto) 44.1 L Lymph % (Auto) 42.7 H [place] % (Auto) 11.4 Eos % (Auto) 0.5 L Baso % (Auto) 1.3 Neut # (Auto) 2900 Lymph # (Auto) 2800 [place] # (Auto) 800 Eos # (Auto) 0 Baso # (Auto) 100 Sodium 140 Potassium 3.7 Chloride 101 Carbon Dioxide 30 BUN 8 Creatinine 0.58 Estimated GFR > 60.0 BUN/Creatinine Ratio 13.8 Glucose 99 Lactate 2.3 H Calcium 8.8 Magnesium Total Bilirubin 0.5 Conjugated Bilirubin 0.0 Unconjugated Bilirubin 0.5 AST 45 H ALT 49 H Alkaline Phosphatase 93 Total Creatine Kinase Total Protein 8.1 Albumin 4.7 Globulin 3.4 Albumin/Globulin Ratio 1.4 Urine RBC Urine WBC Ur Squamous Epith Cells Amorphous Sediment Urine Bacteria Ur Culture Indicated? Salicylates < 1.0 U Opiates 300ng/mL cut Ur Oxycodone Screen Urine Methadone Screen Acetaminophen < 10 L Ur Barbiturates Screen U Tricyclic Antidepress Ur Phencyclidine Scrn Ur Amphetamines Screen U Methamphetamines Scrn Ur MDMA Scrn (Ecstasy) U Benzodiazepines Scrn Urine Cocaine Screen U Marijuana (THC) Screen Ethyl Alcohol 184 H SARS-CoV-2 (PCR) 08/24/21 08/24/21 08/24/21 12:37 13:15 15:36 WBC RBC Hgb Hct MCV MCH MCHC RDW Plt Count Neut % (Auto) Lymph % (Auto) [place] % (Auto) Eos % (Auto) Baso % (Auto) Neut # (Auto) Lymph # (Auto) [place] # (Auto) Eos # (Auto) Baso # (Auto) Sodium Potassium Chloride Carbon Dioxide BUN Creatinine Estimated GFR BUN/Creatinine Ratio Glucose Lactate 3.3 H Calcium Magnesium Total Bilirubin Conjugated Bilirubin Unconjugated Bilirubin AST ALT Alkaline Phosphatase Total Creatine Kinase Total Protein Albumin Globulin Albumin/Globulin Ratio Urine RBC Urine WBC Ur Squamous Epith Cells Amorphous Sediment Urine Bacteria Ur Culture Indicated? Salicylates U Opiates 300ng/mL cut Ur Oxycodone Screen Urine Methadone Screen Acetaminophen Ur Barbiturates Screen U Tricyclic Antidepress Ur Phencyclidine Scrn Ur Amphetamines Screen U Methamphetamines Scrn Ur MDMA Scrn (Ecstasy) U Benzodiazepines Scrn Urine Cocaine Screen U Marijuana (THC) Screen Ethyl Alcohol < 10 SARS-CoV-2 (PCR) Negative 08/24/21 08/24/21 08/25/21 17:33 20:00 04:56 WBC 7.1 RBC 4.48 Hgb 13.0 Hct 38.1 MCV 85.2 MCH 29.0 MCHC 34.1 RDW 13.7 Plt Count 244 Neut % (Auto) 50.8 Lymph % (Auto) 30.6 [place] % (Auto) 15.0 H Eos % (Auto) 2.6 Baso % (Auto) 1.0 Neut # (Auto) 3600 Lymph # (Auto) 2200 [place] # (Auto) 1100 H Eos # (Auto) 200 Baso # (Auto) 100 Sodium Potassium Chloride Carbon Dioxide BUN Creatinine Estimated GFR BUN/Creatinine Ratio Glucose Lactate 2.1 1.5 Calcium Magnesium Total Bilirubin Conjugated Bilirubin Unconjugated Bilirubin AST ALT Alkaline Phosphatase Total Creatine Kinase Total Protein Albumin Globulin Albumin/Globulin Ratio Urine RBC Urine WBC Ur Squamous Epith Cells Amorphous Sediment Urine Bacteria Ur Culture Indicated? Salicylates U Opiates 300ng/mL cut Ur Oxycodone Screen Urine Methadone Screen Acetaminophen Ur Barbiturates Screen U Tricyclic Antidepress Ur Phencyclidine Scrn Ur Amphetamines Screen U Methamphetamines Scrn Ur MDMA Scrn (Ecstasy) U Benzodiazepines Scrn Urine Cocaine Screen U Marijuana (THC) Screen Ethyl Alcohol SARS-CoV-2 (PCR) 08/25/21 04:56 WBC RBC Hgb Hct MCV MCH MCHC RDW Plt Count Neut % (Auto) Lymph % (Auto) [place] % (Auto) Eos % (Auto) Baso % (Auto) Neut # (Auto) Lymph # (Auto) [place] # (Auto) Eos # (Auto) Baso # (Auto) Sodium 137 Potassium 3.7 Chloride 111 H Carbon Dioxide 27 BUN 12 Creatinine 0.57 Estimated GFR > 60.0 BUN/Creatinine Ratio 21.1 Glucose 96 Lactate Calcium 8.1 L Magnesium 1.8 Total Bilirubin Conjugated Bilirubin Unconjugated Bilirubin AST ALT Alkaline Phosphatase Total Creatine Kinase Total Protein Albumin Globulin Albumin/Globulin Ratio Urine RBC Urine WBC Ur Squamous Epith Cells Amorphous Sediment Urine Bacteria Ur Culture Indicated? Salicylates U Opiates 300ng/mL cut Ur Oxycodone Screen Urine Methadone Screen Acetaminophen Ur Barbiturates Screen U Tricyclic Antidepress Ur Phencyclidine Scrn Ur Amphetamines Screen U Methamphetamines Scrn Ur MDMA Scrn (Ecstasy) U Benzodiazepines Scrn Urine Cocaine Screen U Marijuana (THC) Screen Ethyl Alcohol SARS-CoV-2 (PCR) [facility] Social History household members: none Smoking Status: Current every day smoker Assessment & Plan Assessment & Plan narrative: Ms. Desir is a 36W with PMH of bipolar disorder, EtOH abuse who presents are i ntentional gabapentin ingestion and alcohol withdrawal. 1. Acute alcohol withdrawal -given phenobarb and ativan in ED with good effect -continue ciwa protocol with ativan -ordered mvi, thiamine, folate -patient is interested in quitting alcohol -she is interested in outpatient/inpatient resources -naltrexone has helped reduce cravings in the past 2. Intentional gabapentin ingestion -most likely side effect is lethargy -she is likely outside window for any further acute side effects -hold gabapentin 3. Bipolar disorder with depression, anxiety with intermittent suicidal thoughts, ADHD -continue atomoxetine, vraylar, lamotrigine -consult psychiatry -she is today 08/25 unsure is she is feeling suicidal, but she has no suicidal plan -will need to determine if patient will need inpatient psychiatry care once medically stable CODE: Full Proxy: none I have utilized all available resources to reconcile the patients home medications Time Spent With Patient Critical Care time: I spent a total of [] minutes of critical care time on this patient's care today; this time is exclusive of procedural time.
--- NOTE | 2021-08-25 15:11 | CM.DPC ---
DCP Note SOFTWARE MAINTENANCE ENGINEER receives call from Leonarda with intake at [facility] and reports that patient has been accepted for dual dx program by accepting providers TERENCE Pan pshyciatric nurse and Dr. Emile Brown. It is reported that patient can arrive at facility any time after 1630. SOFTWARE MAINTENANCE ENGINEER provides information for transport to coordinating RN and [facility]RED[facility]ER in acute care. It is reported that [facility] can hand picker patient at 1700. SOFTWARE MAINTENANCE ENGINEER informs patient's RN Sulema, SOFTWARE MAINTENANCE ENGINEER reviews this with Hospitalist Dr. Laureano who indicates agreement and understanding. Plan: Patient to transfer to [facility] this evening for Dual dx voluntary inpatient hospitalization. KEVIN Good
[2021-08-25] MEDS: NICOTINE 21 MG PATCH TOP (15:37)
[2021-08-25] MEDS: cefTRIAXone 1,000 MG in SODIUM CHLORIDE 0.9% 100 ML 200 ML IV (15:40)
--- NOTE | 2021-08-25 15:41 | PC.NURSE ---
Addendum entered by Sulema Harris R.N. 08/25/21 17:18: REPORT GIVEN TO JADA AT [facility] Addendum entered by Sulema Harris R.N. 08/25/21 17:04: PT TRANSPORTED AT THIS TIME Original Note: PT PREPARING TO TRANSFER TO [facility] IN [facility]- SHE IS QUITE ANXIOUS AND PACING ABOUT THE ROOM- LAST CIWA SCORE 11 AND 2MG PO LORAZ GIVEN- WELL TOPICAL NICOTINE PATCH PLACED ON RIGHT SHOULDER- RECEIVING IV DOSE OF CEFTRIAXONE FOR +UTI AND ORDER MADE FOR PO LEVAQUIN FOR FACILITY- IV TO BE REMOVED PRIOR TO TRANSFER
--- NOTE | 2021-08-25 15:44 | P.DS_ITS ---
History of Present Illness History of Present Illness Chief complaint: SI Narrative: Ms. Desir is a 36W with PMH bipolar disorder with previous suicide attempt, EtOH abuse with previous withdrawal seizures who presents after intentional gabapentin ingestion and also seeking help for EtOH withdrawal. She states that she has a long history of bipolar disorder, she has had suicide attempt in the past, but this was when she was very young. She recently moved to [place] and has little social support here. She had been sober for two years but started drinking significantly six months ago. She is now drinking more and more whiskey and is drinking as much as half a gallon of whiskey daily. Her last drink was 2am this morning on 08/24. She is taking naltrexone. She has been thinking that her psychiatry meds have not been controlling her symptoms well. She has been having worse anxiety. She has been feeling suicidal off and on very frequently, she has been thinking of cutting herself. She says that yesterday she took approximately 15 pills of 300mg gabapentin because she wanted to control her anxiety, and she was not trying to commit suicide at that time. She is unsure right now when I am talking to her if she is feeling suicidal. She felt quite shaky when she initially came in to the hospital, and still feels withdrawal symptoms but they are improved since being started on medications. She wants help with both her mental health and her alcohol use. In the ED workup was done, vitals signs initially normal. She then developed tachycardia as her withdrawal from alcohol worsened. Labs notable for wBC 6.6, hgb 14.9, plts 332. Creatinine 0.58. UA with positive bacteria. Urine tox screen negative. Initial EtOH 184. Tylenol negative. Lactate 2.3->3.3->2.1. She was given phenobarb and ativan. She was admitted for further treatment. Past medical history: Bipolar disorder Family history: Father with EtOH abuse, [place] Social history: a fifth to half gallon of whiskey daily, rarely uses THC, denies other substance use Discharge Providers Provider Date of admission: 08/24/21 16:09 Discharge Date: 08/25/21 Consults: 08/24/21 10:41 Consult to [facility] - Director Of Special Events Stat Comment: [employer] Consult needed for:: Behavioral Health Assess 08/24/21 17:51 Consult to Physician Routine Comment: Consulting Provider: Charles Mehta Reason for consultation: intential od, depression, bipolar?, etoh abuse Discharge provider: Elier Laureano MD Summary Hospital Course Discharge Diagnosis: 1. Acute alcohol withdrawal 2. Intentional gabapentin ingestion 3. Bipolar disorder with depression, anxiety 4. Intermittent suicidal thoughts 5. UTI Hospital Course: Ms. Desir came in to the hospital after an intentional gabapentin ingestion. She stated that is was to try to control her anxiety. She denied that this was a suicide attempt. Prior to coming to the hospital she has had worsening anxiety. She has been thinking of cutting herself. She sometimes feels suicidal. Her last drink was early in the morning on 08/24 the day she was admitted to the hospital. She had mild withdrawal that was controlled with ativan after getting phenobarb loaded in the ED. She was found to have a UTI and should complete a three day course of antibiotics with levofloxacin 500mg on 08/25. She had mild withdrawal on day of discharge. She was not sure if she was still feeling suicidal in the hospital. She wanted help with quitting alcohol and with better controlling her mental health. She was transferred to [facility] for further treatment of her mental health and withdrawal. Discharge time 35 minutes Exam Vital Signs (past 8 hours): - 08/25/21 08:25 08/25/21 08:34 08/25/21 09:08 Temperature Pulse Rate 88 Respiratory Rate 19 Blood Pressure 147/94 H Pulse Oximetry 96 97 08/25/21 09:10 08/25/21 10:50 08/25/21 12:09 Temperature Pulse Rate 99 H Respiratory Rate 20 Blood Pressure 147/94 H Pulse Oximetry 95 08/25/21 12:13 08/25/21 13:00 08/25/21 15:17 Temperature 98.7 F Pulse Rate 112 H Respiratory Rate 20 Blood Pressure 156/83 H Pulse Oximetry 97 99 97 Oxygen Delivery Method Room Air Oxygen Flow Rate 0 Narrative Exam Narrative: GEN: no acute distress, mild anxiety HEENT: moist mucous membranes, PERRL NECK: trachea midline, no JVD CV: mildly tachycardic, no murmurs PULM: clear bilaterally, no wheezes, rhonchi, rales ABD: soft, mildly distended, nontender, no organomegaly, normal bowel sounds EXT: warm and well perfused with no edema NEURO: awake, alert, mild tremors, moving all extremities with no focal deficits PSYCH: pleasant, cooperative, anxious Objective Labs Result Diagrams: 08/25/21 04:56 08/25/21 04:56 Labs: Laboratory Results - last 24 hr 08/24/21 08/24/21 08/24/21 10:43 15:36 17:33 WBC RBC Hgb Hct MCV MCH MCHC RDW Plt Count Neut % (Auto) Lymph % (Auto) [place] % (Auto) Eos % (Auto) Baso % (Auto) Neut # (Auto) Lymph # (Auto) [place] # (Auto) Eos # (Auto) Baso # (Auto) Sodium Potassium Chloride Carbon Dioxide BUN Creatinine Estimated GFR BUN/Creatinine Ratio Glucose Lactate 2.1 Calcium Magnesium Total Creatine Kinase 293 H Ethyl Alcohol < 10 08/24/21 08/25/21 08/25/21 20:00 04:56 04:56 WBC 7.1 RBC 4.48 Hgb 13.0 Hct 38.1 MCV 85.2 MCH 29.0 MCHC 34.1 RDW 13.7 Plt Count 244 Neut % (Auto) 50.8 Lymph % (Auto) 30.6 [place] % (Auto) 15.0 H Eos % (Auto) 2.6 Baso % (Auto) 1.0 Neut # (Auto) 3600 Lymph # (Auto) 2200 [place] # (Auto) 1100 H Eos # (Auto) 200 Baso # (Auto) 100 Sodium 137 Potassium 3.7 Chloride 111 H Carbon Dioxide 27 BUN 12 Creatinine 0.57 Estimated GFR > 60.0 BUN/Creatinine Ratio 21.1 Glucose 96 Lactate 1.5 Calcium 8.1 L Magnesium 1.8 Total Creatine Kinase Ethyl Alcohol [facility] Social History household members: none Smoking Status: Current every day smoker Discharge Plan Discharge Plan Patient Disposition: Xfer Psychiatric Hosp Other facility: [facility] Discharge Health Status Multidrug resistant organism: No MDRO Diet/Activity/Treatments Diet: Regular Liquid consistency: Normal/Thin Food texture: Regular
== END 2021-08-25 17:05 | DRG 918 ==
LOC: ED 16:07 → AC 16:09 → ICU 18:05
PROVIDERS: Admitting Provider Internal Medicine; Emergency Provider Emergency Medicine; Referring Provider Emergency Medicine; Visit Provider Internal Medicine
DX: T42.6X1A Poisoning by other antiepileptic and sedative-hypnotic drugs, accidental (unintentional), initial encounter (principal); F10.139 Alcohol abuse with withdrawal, unspecified; R45.851 Suicidal ideations; N39.0 Urinary tract infection, site not specified; R53.83 Other fatigue; Y90.6 Blood alcohol level of 120-199 mg/100 ml; F31.9 Bipolar disorder, unspecified; F41.9 Anxiety disorder, unspecified; F17.200 Nicotine dependence, unspecified, uncomplicated; Z20.822 Contact with and (suspected) exposure to COVID-19
CPT/HCPCS: 36415; 80048; 80053; 80076; 80305; 80320; 80329; 81003; 81015; 81025; 82550; 83605; 83735; 85025; 87086; 87186; 87635; 94760; 96361; 96374; 96375; 96376; 99284; 99285; C9803; G0480; J0696; J1650; J2060; J2560

== ENCOUNTER → 2021-09-15 08:36 | Outpatient (CLI) | payer OTHER, MEDICAID, SELFPAY ==
[2021-08-24 18:16] VITALS: BMI 30.3
== END ==
PROVIDERS: PCP Family Medicine; Visit Provider Family Medicine
DX: N39.0 Urinary tract infection, site not specified (principal)
CPT/HCPCS: 87086